=== PATIENT | female | born 1935 | race Caucasian/White ===

== ENCOUNTER 2018-03-05 09:19 | Emergency (ER) | payer OTHER ==
[~2018-03-05] VITALS: Ht 152.4 cm; Wt 113.4 kg
[2018-03-05] MEDS ORDERED: FUROSEMIDE40 MG (09:42)
[2018-03-05] MEDS ORDERED: ISOSORBIDE DINI30 MG (09:43)
[2018-03-05] MEDS ORDERED: GLUCOTROL10 MG (09:43)
[2018-03-05] MEDS ORDERED: CARVEDILOL3.125 MG (09:43)
[2018-03-05] MEDS ORDERED: GABAPENTIN300 MG (09:43)
[2018-03-05] MEDS ORDERED: GLIPIZIDE10 MG (09:44)
[2018-03-05] MEDS ORDERED: LANTUS SOL100 UNIT/1 (09:44)
== END 2018-03-05 14:13 | disposition home or self-care (01) ==
LOC: ER 09:19
DX: K29.70 Gastritis, unspecified, without bleeding (principal)

== ENCOUNTER 2019-08-03 14:01 | Inpatient (IN) | payer OTHER ==
[~2019-08-03] VITALS: Ht 149.9 cm; Wt 56.7 kg
[~2019-08-03 14:01] MED LIST: CARVEDILOL3.125 MG; FUROSEMIDE40 MG; GABAPENTIN300 MG; GLIPIZIDE10 MG; GLUCOTROL10 MG; ISOSORBIDE DINI30 MG; LANTUS SOL100 UNIT/1
== END 2019-08-07 07:10 | disposition expired | DRG 871 ==
LOC: ER 14:01 → ICU-2 17:11 → ICU 17:11
PROVIDERS: ADMIT Student in an Organized Health Care Education/Training Program
PROC: 0T9B70Z Drainage of Bladder with Drainage Device, Via Natural or Artificial Opening (ICD-10-PCS; 2019-08-03)
PROC: 8E0ZXY6 Isolation (ICD-10-PCS; 2019-08-05)
PROC: 0DH67UZ Insertion of Feeding Device into Stomach, Via Natural or Artificial Opening (ICD-10-PCS; 2019-08-05)
PROC: 3E0G76Z Introduction of Nutritional Substance into Upper GI, Via Natural or Artificial Opening (ICD-10-PCS; 2019-08-05)
PROC: 0BH17EZ Insertion of Endotracheal Airway into Trachea, Via Natural or Artificial Opening (ICD-10-PCS; principal; 2019-08-06)
PROC: 5A1945Z Respiratory Ventilation, 24-96 Consecutive Hours (ICD-10-PCS; 2019-08-06)
PROC: 4A033R1 Measurement of Arterial Saturation, Peripheral, Percutaneous Approach (ICD-10-PCS; 2019-08-06)
DX: A41.9 Sepsis, unspecified organism (principal); J96.01 Acute respiratory failure with hypoxia; J15.212 Pneumonia due to Methicillin resistant Staphylococcus aureus; N39.0 Urinary tract infection, site not specified; N17.8 Other acute kidney failure; J98.11 Atelectasis; J90 Pleural effusion, not elsewhere classified; E44.0 Moderate protein-calorie malnutrition; E86.0 Dehydration; E87.8 Other disorders of electrolyte and fluid balance, not elsewhere classified; K29.00 Acute gastritis without bleeding; R31.0 Gross hematuria; C67.9 Malignant neoplasm of bladder, unspecified; N39.8 Other specified disorders of urinary system; Z99.81 Dependence on supplemental oxygen